=== PATIENT | male | born 1995 | race Caucasian/White ===

== ENCOUNTER 2017-08-20 19:51 | Emergency (ER) | payer OTHER ==
[2017-08-20] MEDS ORDERED: LIDOCAINE 2% JELLY 20 ML (UROJECT) UR ONE (19:55)
[2017-08-20] MEDS ORDERED: LIDOCAINE 2% JELLY 20 ML (UROJECT) ONE (19:55)
[2017-08-20] MEDS ORDERED: fentaNYL 100 MCG/2 ML INJ ONE (19:57)
[2017-08-20] MEDS ORDERED: fentaNYL 100 MCG/2 ML INJ IVP ONE (20:00)
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
[2017-08-20] MEDS ORDERED: BACITRACIN ZINC 14.2 GM OINTTUBE TP ONE (20:36)
[2017-08-20] MEDS ORDERED: HYDROCOD/APAP 5/325 PREPACK#6 BTL TAKEHOME ONE (21:43)
[2017-08-20] MEDS ORDERED: ONDANSETRON 4MG PREPACK#2 BTL TAKEHOME ONE (21:45)
[2017-08-20 22:46] VITALS: BP 113/64
== END 2017-08-20 22:46 | disposition home or self-care (01) ==
PROC: 0CQ0XZZ Repair Upper Lip, External Approach (ICD-10-PCS; principal; 2017-08-20)
DX: S01.511A Laceration without foreign body of lip, initial encounter (principal); S40.811A Abrasion of right upper arm, initial encounter; S40.812A Abrasion of left upper arm, initial encounter; S80.811A Abrasion, right lower leg, initial encounter; S80.812A Abrasion, left lower leg, initial encounter; V28.0XXA Motorcycle driver injured in noncollision transport accident in nontraffic accident, initial encounter; Y92.410 Unspecified street and highway as the place of occurrence of the external cause; Y99.8 Other external cause status; Y93.55 Activity, bike riding
CPT/HCPCS: 96374; J3010